=== PATIENT | female | born 1965 | race Caucasian/White ===

== ENCOUNTER 2023-07-01 10:35 | Outpatient (AMB) | payer MEDICAID, SELFPAY ==
--- NOTE | 2023-07-01 10:43 | A.OFFVIS_ITS ---
Intake Vital Signs 07/01/23 10:52 Height 5 ft 3 in Weight 217 lb BMI 38.4 BP 132/80 Blood Pressure Location Lt brachial Position Sitting Respiration 16 Pulse 94 Pulse Source Pulse Oximeter Pulse Oximetry (%) 97 Oxygen Delivery Method Room Air Intake Visit Reasons: Postaminectory syndrome, not elsewhere classified Intake Note: patient comes in for initial visit was referred by [facility]. Allergies No Known Allergies Allergy (Verified 07/01/23 10:47) HPI Postaminectory syndrome, not elsewhere classified HPI Details Maria Ines is very pleasant 58 years old female who presents in my office with complains on pain in the projection of the previously implanted spinal cord stimulator battery with sensation of the pain radiating from the battery site all the way down to the level of her knee on the lateral side of her thigh. She reported that she was given this procedure in the past by [facility] and after that she went to the surgeon with [facility] who implanted the device to her permanently. Unfortunately her insurance changed and her surgeon no longer accepts her insurance. She came to this office with request to remove the SCS. She reports that she cannot sleep normally because of her pain cannot do activities of daily living she can take care of herself but she cannot function normally currently she is unemployed. She in the past was working cover her pain points significant limitations on her working abilities. She reports that heat and cold applications might alleviate her pain minimally. She reports her pain in terms of tissue damage as pulsing throbbing pounding stabbing lancinating dull sore hurting aching heavy. She tried topical medications physical therapy and NSAIDs to help her pain those did not work. In the past she had 3 procedures on the lower lumbar spine she denies presence of the hardware. Her past medical history significant for headaches hypertension and arthritis. The surgical history is as above. She admits that she was smoker in the past currently is not smoking she denies drinking alcohol she denies using recreational drugs. [facility] Social History (Updated 07/01/23 @ 11:08 by Zoraida Acevedo) Alcohol intake: current Review of Systems Const Reports no additional complaints ENT Reports Normal hearing present Card Reports no additional complaints Resp Reports no additional complaints GI Reports no additional complaints Musc Reports as per HPI Neuro Reports as per HPI, Reports Normal hearing present, Denies Abnormal speech present, Denies confusion and Denies Sensory deficit (Neuro) Psych Denies confusion Physical Exam Vital Signs: Last Vital Signs Pulse 94 07/01/23 10:52 Resp 16 07/01/23 10:52 BP 132/80 07/01/23 10:52 Pulse Ox 97 07/01/23 10:52 Oxygen Delivery Method Room Air 07/01/23 10:52 BMI result Body Mass Index 38.4 Const General: no acute distress; No confusion Nutritional Appearance: obese morbidly obese Orientation/consciousness: patient oriented x3 and No confusion Eyes General: appearance normal, both eyes and all related structures Pupils: Equal, round and reactive pupils present EOM: EOMs intact bilaterally Neck Neck: Yes full ROM Chest Chest palpation & inspection: normal inspection of the chest Resp Effort & Inspection: normal respiratory effort, able to speak in complete sentences, normal respiratory pattern, no audible wheezes and no cough Cardio Jugular venous distension: no JVD GI Inspection: Yes normal to inspection Back/Spine/Pelvis Other: On this pack claire of the lumbar spine she has very well-healed scar in the projection of previously made lumbar surgeries as well as in the thoracic spine she has a scar in the projection of the thoracic spine. No signs of inflammation of any scars tissues no signs of infection no redness no swelling no pathological discharge. Neuro General: patient oriented x3, gait normal and No confusion Cranial nerves: Yes CN's II-XII intact bilaterally, Yes Equal, round and reactiv e pupils present, Yes Normal hearing present and Yes Ability to bilaterally elevate shoulders present Speech: No Abnormal speech present Gait exam (Neuro): Normal gait present Motor exam (neuro): 5/5 motor strength present throughout Sensory Exam: No Sensory deficit (Neuro) Extrem General: No pedal edema Psych Speech and movement: Normal speech and movement present Affect: normal affect Attitude: cooperative Thought process: Normal thought process present Thought content: Normal thought content present Insight: Good insight present (Psych) Judgement: Good judgement present (Psych) Assessment & Plan Assessment & Plan (1) Spinal cord stimulator dysfunction: Code(s): T85.192A - Other mechanical complication of implanted electronic neurostimulator of spinal cord electrode (lead), initial encounter (2) Postlaminectomy syndrome of lumbar region: Code(s): M96.1 - Postlaminectomy syndrome, not elsewhere classified (3) Chronic pain syndrome: Code(s): G89.4 - Chronic pain syndrome Plan I will refer this patient for neurosurgical procedure to Dr. Franklin. This is the only way I can help her pain. It looks like she does not complain on her postlaminectomy syndrome pain and rather have significant complains on SCS battery. She needs to remove the entire system including the paddle in the thoracic spine otherwise she will not be able to go for MRI. Orders: Referrals Neuro Spine Referral G89.4 - Chronic pain syndrome, M96.1 - Postlaminectomy syndrome, not elsewhere classified, T85.192A - Other mechanical complication of implanted electronic neurostimulator of spinal cord electrode (lead), initial encounter Coding Level of Care Code New Pt Level 3 (91645) Diagnoses Spinal cord stimulator dysfunction T85.192A Postlaminectomy syndrome of lumbar region M96.1 Chronic pain syndrome G89.4
[2023-07-01 10:52] VITALS: BP 132/80; PULSE 94; RESP 16; O2SAT 97; BMI 38.4
== END 2023-07-01 11:11 | disposition home or self-care (01) ==
PROVIDERS: PCP Physical Medicine & Rehabilitation; Visit Provider Anesthesiology
DX: T85.192A Other mechanical complication of implanted electronic neurostimulator of spinal cord electrode (lead), initial encounter (principal); M96.1 Postlaminectomy syndrome, not elsewhere classified; G89.4 Chronic pain syndrome
CPT/HCPCS: 99203

== ENCOUNTER → 2023-07-01 10:35 | Outpatient (BNVA) | payer OTHER, SELFPAY | PROVIDERS: PCP Physical Medicine & Rehabilitation; Visit Provider Anesthesiology ==

== ENCOUNTER 2023-08-20 13:57 | Outpatient (AMB) | payer OTHER, SELFPAY ==
--- NOTE | 2023-08-20 14:04 | HO.SPINEOV ---
Intake Intake Visit Reasons: chronic pain Intake Note: Ms. Posada is here today to discuss removal of SCS. Vision Teacher Required: No Allergies No Known Allergies Allergy (Verified 07/01/23 10:47) Assessment & Plan Assessment & Plan (1) Chronic pain syndrome: Code(s): G89.4 - Chronic pain syndrome Plan Dear Dr Demarco, Thank you for referring Mrs Posada to our office today. She is a 58-year-old female who has had 3 previous back surgeries by Dr. Powell, who underwent a spinal cord stimulator placement at [facility] 2 years ago. Unfortunately the placement of the stimulator left her with significant amount of pain around her left buttock where the implantable neurostimulator is located. She reports that it feels like a bruise. It has never gone away gotten better. When the device is turned on will give her like trickle sensations down her legs and will generally make the hole sensation of the pain in her back and the site of the battery even worse. She would like to have it removed. She does have ongoing back pain and left leg radicular pain and a spondylolisthesis at L4-5. PMH: Borderline diabetes, just started on medicine, 3 previous back surgeries, depression, GERD, seasonal allergies Social hx: She vapes Medications: Aripiprazole, duloxetine, gabapentin, loratadine, lorazepam, metformin, naproxen, nortriptyline, pantoprazole, Ambien Allergies: None Physical exam: Awake alert oriented, no acute distress, gait, strength is normal. I was able the palpate the neurostimulator on the left side of her buttocks region. It was tender to palpation. She has a midline scar in her lumbar and her thoracic region. Imaging review: I did x-rays today in the office which show an implantable device in the left side soft tissues extending into the thoracic region subcutaneously and the wires tunneled in the midthoracic region to the epidural paddles. Impression: 58-year-old female presents with history of chronic low back pain, left leg pain, 3 previous surgeries on her lumbar region done by Dr Powell many years ago, who underwent a spinal cord stimulator placement by at [facility] 2 years ago. The device has been nothing but an annoyance an inconvenience for her. It actually gives her worsening pain when it is turned on. She has a constant feeling of bruising over the pulse generator site on her left buttock. She would like it removed. Dr. Franklin and I discussed the procedure with her. We have tentatively booked her for September 26. She understands that the device will be removed, but there are rare circumstances were we cannot get the whole set of wires and paddles out if they are too tethered or scarred onto the dura. She wishes to proceed with the surgery, all pertinent risks and benefits were discussed. Thank you for allowing us to care for your patient. The total time spent with this visit with this patient was 45 minutes reviewing history, physical exam, thoracic and lumbar x-ray imaging review, and implementation of treatment plan or further diagnostic testing Luisito Franklin MD,PhD [facility] Orders: Orders XR lumbar spine 4V min Today G89.4 - Chronic pain syndrome XR thoracic spine 2V Today G89.4 - Chronic pain syndrome Coding Level of Care Code New Pt Level 4 (60996) Diagnoses Chronic pain syndrome G89.4
== END 2023-08-20 15:07 | disposition home or self-care (01) ==
PROVIDERS: PCP Physical Medicine & Rehabilitation; Referring Provider Anesthesiology; Visit Provider Physician Assistant
DX: G89.4 Chronic pain syndrome (principal)
CPT/HCPCS: 99204

== ENCOUNTER 2023-08-20 13:57 | Outpatient (REF) | payer OTHER, SELFPAY ==
--- NOTE | ~2023-08-20 | XR_ITS ---
EXAMINATION: XR LUMBOSACRAL SPINE WITH OBLIQUES CLINICAL INFORMATION: Chronic pain syndrome. COMPARISON: None available. TECHNIQUE: Frontal and lateral views of the lumbar spine. FINDINGS: Examination demonstrates mild to moderate disc and facet degenerative change at L4-S1, with grade 1 anterolisthesis of L4 on L5. Mild thoracolumbar levocurvature. Vertebral body heights appear maintained. No lytic or sclerotic bony lesion is seen. The paraspinal soft tissues appear unremarkable. Electronic presumed pulse generator device projects over the left gluteal soft tissues. Its leads are partially imaged. Status post cholecystectomy. XR/XR lumbar spine 4V min IMPRESSION: Degenerative change.
--- NOTE | ~2023-08-20 | XR_ITS ---
EXAMINATION: XR THORACOLUMBAR SPINE CLINICAL INFORMATION: Chronic pain syndrome. COMPARISON: None available. TECHNIQUE: Frontal and lateral views of the thoracic spine. FINDINGS: The vertebral alignment is normal. Mild to moderate mid to lower thoracic disc degenerative change, most notable at T5-T9. No fracture or subluxation appreciated. 62 }} the partially imaged. The tips of the leads project over the posterior spinal canal at T6-T7. The surrounding prevertebral soft tissues otherwise appear unremarkable. Status post cholecystectomy. XR/XR thoracic spine 2V IMPRESSION: No acute finding.
== END 2023-08-20 13:58 | disposition home or self-care (01) ==
LOC: HO.HOSX 13:57
PROVIDERS: PCP Physical Medicine & Rehabilitation; Referring Provider Anesthesiology; Visit Provider Physician Assistant
DX: G89.4 Chronic pain syndrome (principal)
CPT/HCPCS: 72070; 72110

== ENCOUNTER 2023-09-26 05:53 | Day surgery (SDC) | payer MEDICAID, SELFPAY ==
[2023-09-24 10:25] VITALS: BMI 35.4
--- NOTE | 2023-09-25 12:41 | HO.ANESPROP2 ---
Documented by User: Leonora Houston NP 09/25/23 12:42 HPI - Anesthesia Eval Consult details Narrative: 58yo F for Left Spinal Cord Stimulation REMOVAL PMFSH Active Problems Active Problems: All Active Problems (Updated 09/24/23 @ 10:29 by Kaylyn Allen RN) Chronic pain syndrome (Acute) Postlaminectomy syndrome of lumbar region (Acute) Spinal cord stimulator dysfunction (Acute) Past Medical History Medical History (Updated 09/24/23 @ 10:29 by Kaylyn Allen, NATASHA) Anxiety Vapes nicotine containing substance Depression Seasonal allergies GERD (gastroesophageal reflux disease) Diabetes Surgical History Surgical History (Updated 09/24/23 @ 10:25 by Kaylyn Allen, NATASHA) Hx of colonoscopy Hx of cholecystectomy History of back surgery Social History (Updated 07/01/23 @ 11:08 by Zoraida Acevedo) Are you a primary chiropractic care to a significant other at home: No Do you presently have visiting nurse or other home services: No Alcohol intake: current Alcohol intake frequency: does not drink Patient Tobacco Use Status: Former Tobacco user Quit Date: 2015 Tobacco use type: Smokeless Tobacco Meds Allergies Allergy/AdvReac Type Severity Reaction Status Date / Time No Known Allergies Allergy Verified 09/24/23 10:25 Home Medications Medication Instructions Recorded Confirmed Last Taken Type aripiprazole 2 mg tablet 2 mg PO BEDTIME 07/01/23 09/24/23 Unknown History duloxetine 60 mg capsule,delayed 60 mg PO BEDTIME 07/01/23 09/24/23 Unknown History release gabapentin 300 mg capsule 300 mg PO TID 07/01/23 09/24/23 Unknown History loratadine 10 mg tablet 10 mg PO BEDTIME 07/01/23 09/24/23 Unknown History lorazepam 2 mg tablet 1 mg PO TID 07/01/23 09/24/23 09/26/23 05:30 History metformin 500 mg tablet,extended 1,000 mg PO BID 07/01/23 09/24/23 Unknown History release 24 hr naproxen 500 mg tablet 500 mg PO BID 07/01/23 09/24/23 09/18/23 08:00 History nortriptyline 10 mg capsule 10 mg PO BEDTIME 07/01/23 09/24/23 Unknown History pantoprazole 40 mg tablet,delayed 40 mg PO DAILY 07/01/23 09/24/23 Unknown History release zolpidem 10 mg tablet 10 mg PO BEDTIME 07/01/23 09/24/23 Unknown History Exam Exam Date and Time: September 25, 2023 124 Height,Weight and Vital Signs: Height 5 ft 3 in Weight 90.718 kg Assessment and Plan Assessment Anesthesia Assessment: Chart Reviewed Documented by User: Bimal Waite MD 10/03/23 16:48 [facility] Past Medical History Medical History (Updated 09/24/23 @ 10:29 by Kaylyn Allen RN) Anxiety Vapes nicotine containing substance Depression Seasonal allergies GERD (gastroesophageal reflux disease) Diabetes Family History Family history of problems with anesthesia: No Surgical History Surgical History (Updated 09/24/23 @ 10:25 by Kaylyn Allen RN) Hx of colonoscopy Hx of cholecystectomy History of back surgery History of Problems with Anesthesia: No Social History (Updated 07/01/23 @ 11:08 by Zoraida Acevedo) Are you a primary chiropractic care to a significant other at home: No Do you presently have visiting nurse or other home services: No Alcohol intake: current Alcohol intake frequency: does not drink Patient Tobacco Use Status: Former Tobacco user Quit Date: 2015 Tobacco use type: Smokeless Tobacco Meds Allergies Allergy/AdvReac Type Severity Reaction Status Date / Time No Known Allergies Allergy Verified 09/24/23 10:25 Home Medications Medication Instructions Recorded Confirmed Last Taken Type aripiprazole 2 mg tablet 2 mg PO BEDTIME 07/01/23 09/24/23 Unknown History duloxetine 60 mg capsule,delayed 60 mg PO BEDTIME 07/01/23 09/24/23 Unknown History release gabapentin 300 mg capsule 300 mg PO TID 07/01/23 09/24/23 Unknown History loratadine 10 mg tablet 10 mg PO BEDTIME 07/01/23 09/24/23 Unknown History lorazepam 2 mg tablet 1 mg PO TID 07/01/23 09/24/23 09/26/23 05:30 History metformin 500 mg tablet,extended 1,000 mg PO BID 07/01/23 09/24/23 Unknown History release 24 hr naproxen 500 mg tablet 500 mg PO BID 07/01/23 09/24/23 09/18/23 08:00 History nortriptyline 10 mg capsule 10 mg PO BEDTIME 07/01/23 09/24/23 Unknown History pantoprazole 40 mg tablet,delayed 40 mg PO DAILY 07/01/23 09/24/23 Unknown History release zolpidem 10 mg tablet 10 mg PO BEDTIME 07/01/23 09/24/23 Unknown History Exam Airway Mallampati Class: IV Loose/Missing/Broken Teeth: Yes (right chipped) Assessment and Plan Assessment Anesthesia Assessment: Anesthesia Plan Discussed Final Anesthetic Review Family History of Problems with Anesthesia: No History of Problems with Anesthesia: No NPO: Yes ASA Class: III Final Preanesthetic Review: Meds/Allgs Chart Reviewed, Consent Obtained/Reviewed and Anes Risks/Benef Reviewed Patient Risk: Intermediate Procedure Risk: Intermediate Anesthetic Plan Anesthetic Plan: GA and Agree w/ Assess. and Plan Disposition: Standard PACU
[2023-09-26] VITALS (11 sets, daily range): BP systolic 124–157; BP diastolic 72–88; PULSE 84–90; RESP 10–19; TEMP 36.1–36.6; O2SAT 94–98; BMI 39.1
[2023-09-26] MEDS: Gabapentin 300 MG CAPSULE PO (06:30)
[2023-09-26] MEDS: methocarbamoL 750 MG TABLET PO (06:30)
[2023-09-26 06:36] LABS: Glucose, Whole Blood 136 mg/dL (60-115)
[2023-09-26] MEDS: Lactated Ringers 1,000 ML 100 ML IVCONT (06:38)
--- NOTE | 2023-09-26 06:59 | MHC.SHP ---
Pre-Procedural Eval Section A Date of Service: 09/26/23 Section B Chief Complaint: Chronic pain syndrome Allergies: Allergies Allergy/AdvReac Type Severity Reaction Status Date / Time No Known Allergies Allergy Verified 09/24/23 10:25 Review of Systems Sugical H&P ROS: Negative: Constitution, Cardiovascular, Respiratory, Neurological, Psychiatric, Hem-Onc, Allergic/Immunologic, Gastrointestinal, Genitourinary, Musculoskeletal, Integumentary, Endocrine and Eyes/Ears/Nose/Throat Exam Surgical H&P Exam: Not Evaluated: HEENT, Not Evaluated: Heart, Not Evaluated: Lungs, Not Evaluated: Extremities, Not Evaluated: Abdomen, Not Evaluated: Skin and Not Evaluated: Neurological Plan Diagnosis/Plan: Unchanged I have reviewed the history and physical and performed a pertinent physical examination on my patient. No changes have occurred unless specified. Her plan remains the same, spinal cord stimulator removal. Time Spent With Patient Time: Total time managing care of this patient today __10__ minutes.
--- NOTE | 2023-09-26 08:57 | PM.DS ---
DS: Providers Provider Date of Service: 09/26/23 Primary care physician: Oniel Escoto MD DS: Summary Time Attestation Discharge coordination time: Less than 30 minutes Quality: Safe Use of Opioids Does Pt have an Active Cancer Diagnosis on the Problem List?: No Quality: Stroke Does the patient have a stroke diagnosis?: No Physical Exam Vital Signs: Vital Signs: Last Vital Signs Temp 97 F 09/26/23 06:18 Pulse 88 09/26/23 06:18 Resp 19 09/26/23 06:18 BP 157/80 H 09/26/23 06:18 Pulse Ox 97 09/26/23 06:18 O2 Del Method Room Air 09/26/23 06:18 BMI result Body Mass Index 39.1 DS: Data Data Completed and Pending Labs on day of discharge: Laboratory Results - last 24 hr 09/26/23 06:29 POC Glucose 136 H Discharge Plan Discharge Patient Disposition: Home, Self-Care Referrals: Oniel Escoto MD [Primary Care Provider] - 1 Week Discharge Medications: New oxycodone 5 mg tablet 5 mg PO Q8H PRN (Reason: severe pain (scale score 7-10)) Qty: 21 0RF Rx Instructions: Partial Fill upon patient request. Continued naproxen 500 mg tablet 500 mg PO BID zolpidem 10 mg tablet 10 mg PO BEDTIME pantoprazole 40 mg tablet,delayed release (DR/EC) 40 mg PO DAILY aripiprazole 2 mg tablet 2 mg PO BEDTIME duloxetine 60 mg capsule,delayed release(DR/EC) 60 mg PO BEDTIME nortriptyline 10 mg capsule 10 mg PO BEDTIME gabapentin 300 mg capsule 300 mg PO TID lorazepam 2 mg tablet 1 mg PO TID loratadine 10 mg tablet 10 mg PO BEDTIME metformin 500 mg tablet extended release 24 hr 1,000 mg PO BID Discharge Orders: Discharge Order (Routine); Ordered 09/26/23 Ordered By: Brandin Martins Diet: Advance to usual diet Activity on Discharge: As tolerated Activity Restrictions/Additional Instructions: After your spinal surgery we ask you to observe the following restrictions/guidelines: Activity: It is normal to feel some discomfort as you increase your activity, but that will improve with time. We ask you avoid heavy lifting or acitivities that cause pain. As a general rule, 8lbs is a safe limit for lifting right after surgery. Walk as much as you feel comfortable but not to exhaustion. You will feel extra tired the first few days after surgery. Stay well hydrated. It is OK to walk up and down stairs You may return to driving when you are off narcotics (such as vicodin, oxycodone, dilaudid, etc), and you are back to normal functional capacity. If you have any concerns please check with office before driving. Return to work is specific to each patient and each surgery, so please speak with your doctor/PA at first follow up. Please bring paperwork such as FMLA at that time if you need it filled out. Medications: We will give you a short supply of narcotics after surgery (usually one weeks worth). If you need more please call the office but do not use more than prescribed. You will need to give our office 48 hours notice if you need narcotics refilled and we do not fill narcotics on weekends or evenings. If you are on a narcotic, it is a good idea to take a stool softener such as colace or senna to avoid constipation If you take blood thinner such as aspirin, Plavix, Coumadin, Effient, Eliquis etc for conditions such as Afib, DVT, Pulmonary embolus, coronary disease, stents etc please speak with your surgeon about specific details as to when you can resume these medications. You can resume NSAIDs on post op day 1 (eg: Motrin, Naproxen, etc). Follow up: Please call the office, , after surgery to arrange a 3 week follow up for wound check. Wound Care: You may remove your dressing on the first day after surgery. You may leave open to air. Please do not remove the steri strips underneath. they will fall off on their own in one week. IT IS NORMAL FOR THE WOUND TO OOZE OR BE BLOODY FOR A FEW DAYS AFTER SURGERY. IF THIS HAPPENS JUST PLACE NEW DRESSING OVER IT TO AVOID STAINING CLOTHES. You may shower on post op day # 1 We ask that you do not let the water soak the wound. If it does get wet, just towel dry lightly. Please do not scrub your incision or place any type of chemical/ointment on the wound. No tub baths, pools or jacuzzis for one month. If you have any leaking or redness from your wound, or fevers, please call the office.
--- NOTE | 2023-09-26 10:15 | W.PM.OPN ---
Operative Note Operative Note Date of Service: 09/26/23 Narrative: Preop diagnosis: spinal cord stimulator malfunction Postop diagnosis: same Procedure: removal spinal cord stimulator and generator Surgeon: Dima Franklin MD Assist: TRACE Reynolds Description of procedure: This 58-year-old female has a spinal cord stimulator for chronic pain, which is no longer functional. She wants to have it removed. The procedure complications were explained, including the possibility that the spinal cord stimulator will not come out due to scar tissue. She was brought to the operating room and endotracheally intubated. She was turned prone on the Homero frame. Prepping and draping was done followed by time out. the physician doctor assistant expose the generator. For that he made an incision in the left buttock area. He exposed the battery and removed it from its pocket. In the meantime I worked at the thoracic spine. A midthoracic incision was made. The leads were identified. In the leads in the battery were cut and the leads wereretrieved towards the thoracic incision. The physician doctor assistant closed the supra illiac incision. I follow the leads until they went under the lamina. I tried to remove the 2 leads unsuccessfully and therefore cut time at the entrance of the lamina. Hemostasis was done. The thoracic incision was closed in 2 layers. Steri-Strips were used to approximate incision. An Oppsite with tegaderm was used to cover the incision. All sponge and needle counts were correct. Patient was extubated and transported in a stable condition to recovery room. Anesthesia: general Estimated blood loss: minimal Deposition: Discharge home
== END 2023-09-26 11:59 | disposition home or self-care (01) ==
PROVIDERS: PCP Family Medicine; Visit Provider Neurological Surgery
PROC: (CPT 63661; principal; 2023-09-26 07:30)
DX: T85.840A Pain due to nervous system prosthetic devices, implants and grafts, initial encounter (principal); Y75.2 Prosthetic and other implants, materials and neurological devices associated with adverse incidents; G89.4 Chronic pain syndrome; M43.16 Spondylolisthesis, lumbar region; M54.50 Low back pain, unspecified; Z98.890 Other specified postprocedural states; R73.03 Prediabetes; K21.9 Gastro-esophageal reflux disease without esophagitis; F32.A Depression, unspecified; Z79.84 Long term (current) use of oral hypoglycemic drugs; Z79.1 Long term (current) use of non-steroidal anti-inflammatories (NSAID); Z79.899 Other long term (current) drug therapy; F17.290 Nicotine dependence, other tobacco product, uncomplicated
CPT/HCPCS: 63661; 63688; 82947; J0131; J0690; J1100; J1170; J2250; J2405; J2704; J3010

== ENCOUNTER → 2023-09-26 05:53 | Outpatient (BNV) | payer MEDICAID, SELFPAY | PROVIDERS: PCP Family Medicine; Visit Provider Physician Assistant | DX: T85.193A Other mechanical complication of implanted electronic neurostimulator, generator, initial encounter (principal) | CPT/HCPCS: 63662; 63688; 99499 ==

== ENCOUNTER 2023-10-18 10:13 | Outpatient (AMB) | payer MEDICAID, SELFPAY ==
--- NOTE | 2023-10-18 10:31 | A.SPINEOV_ITS ---
Intake Intake Visit Reasons: 1st post op Intake Note: Mrs. Posada is here today for her 1st post-op visit. Commercial Hvac Technician Required: No Allergies No Known Allergies Allergy (Verified 09/24/23 10:25) Assessment & Plan Assessment & Plan (1) Chronic pain syndrome: Code(s): G89.4 - Chronic pain syndrome Plan Procedure: removal spinal cord stimulator and generator Maria Ines comes in today for her 1st postoperative visit. She has had an uncomplicated healing course status post removal of her spinal cord stimulator. She did report neck pain after the procedure, but did state during this visit today that she had the neck pain since before her stimulator was removed and feels as though it may be related to a newer/acute injury. Overall she reports no pain incision sites and states that she feels no different aside from her stimulator being removed. No neurological deficits. Patient is able to ambulate well, rises from a seated position without difficulty. Incision sites are closed, well healing, with no signs of drainage. We will not and follow-up with the removal of her spinal cord stimulator as this was a fairly uncomplicated procedure. She will be making a follow-up visit with us to re-evaluate her newer onset neck pain. Brandin Franklin MD,PhD [facility] Coding Level of Care Code Global (64741) Diagnoses Chronic pain syndrome G89.4
== END 2023-10-18 10:45 | disposition home or self-care (01) ==
PROVIDERS: PCP Family Medicine; Visit Provider Physician Assistant
DX: G89.4 Chronic pain syndrome (principal)
CPT/HCPCS: 99024

== ENCOUNTER → 2023-10-18 10:13 | Outpatient (BNVA) | payer MEDICAID, SELFPAY | PROVIDERS: PCP Family Medicine; Visit Provider Physician Assistant | DX: Z48.811 Encounter for surgical aftercare following surgery on the nervous system (principal); G89.4 Chronic pain syndrome | CPT/HCPCS: 99212 ==

== ENCOUNTER 2023-11-15 13:10 | Outpatient (REF) | payer MEDICAID, SELFPAY ==
--- NOTE | ~2023-11-15 | XR_ITS ---
EXAMINATION: XR CERVICAL SPINE CLINICAL INFORMATION: Radiculopathy cervical region. COMPARISON: Thoracic spine of August 20, 2023 TECHNIQUE: 5 views of the cervical spine inclusive of flexion and extension views. FINDINGS: Status post ACDF with anterior plate with screws transfixing C5-C6. Hardware appears intact. Multiple rounded radiodensities obscure visualization of C1-C2, possibly related to jewelry and correlation with clinical exam is recommended for confirmation. Visualization of C6 and C7 is limited due to overlying soft tissues. Mild anterolisthesis of C3 on C4 with flexion and extension. XR/XR cervical spine 4V IMPRESSION: Status post ACDF at C5-C6. Hardware appears intact.
== END 2023-11-15 13:11 | disposition home or self-care (01) ==
LOC: HO.HOSX 13:10
PROVIDERS: PCP Family Medicine; Visit Provider Physician Assistant
DX: M54.12 Radiculopathy, cervical region (principal)
CPT/HCPCS: 72050; 99212

== ENCOUNTER 2023-11-15 13:10 | Outpatient (AMB) | payer MEDICAID, SELFPAY ==
--- NOTE | 2023-11-15 14:00 | HO.SPINEOV ---
Intake Intake Visit Reasons: neck and shoulder pain Allergies No Known Allergies Allergy (Verified 09/24/23 10:25) Assessment & Plan Assessment & Plan (1) Cervical radiculopathy: Code(s): M54.12 - Radiculopathy, cervical region Plan HPI: Maria Ines is a pleasant 58-year-old female who is s/p spinal cord stimulator removal. She comes in today in follow-up as an established patient for a new complaint. She reports that she has had right-sided neck and shoulder pain for the last 1.5 months. She reports that her neck pain began without inciting incident, and came on suddenly upon awakening one morning. She states she may have had the neck pain for much longer but did not realize how significant it was until after some of her back pain was relieved from her recent spinal cord stimulator removal. She does have a history of a previous ACDF performed in 2010 at [facility], but she is unsure which levels were done. She states that since her pain onset 6 weeks ago she is attempted to utilize [id number] remedies such as naproxen, Tylenol, Biofreeze, heating pads, and cold packs. She is also attempted an at-home stretching/exercise regimen but states it only exacerbated her symptoms. PE: On exam Maria Ines has 5/5 strength in her upper and lower extremities. No significant sensational deficits are identified. Reflexes are 3+ brisk in her upper & lower extremities. She is able to ambulate well and rises from a seated position without difficulty. (+) right-sided Salinas's. (-) clonus. IMAGING: X-ray imaging shows stable positioning of previous C5-6 ACDF. PLAN: Maria Ines is a pleasant 58-year-old female who comes in today with a chief complaint of 1.5 months of cervical neck pain with radicular symptoms into her right shoulder. Please review her previous office notes for a full patient history. Her history and physical exam are concerning for spinal cord impingement potentially affecting the exiting nerve roots in the right side. I would like to order an MRI of the cervical spine, however when her spinal cord stimulator was removed a portion of the wire leads needed to be left in the upper portion of her back as they could not be removed. The patient is unsure as to what type of spinal cord stimulator she had, and is unsure if she is able to get an MRI. I asked the patient to return home and to look for the information on her stimulator over the weekend, and to call the office early next week so we can schedule her for an MRI if she is eligible. If not we may need to pursue a cervical CT myelogram. Total amount of time spent in this visit was 35 minutes in discussion of symptoms, X-ray imaging results and subsequent plan of care Brandin Franklin MD,PhD [facility] Orders: Orders XR cervical spine 4V Today M54.12 - Radiculopathy, cervical region Coding Level of Care Code Est Pt Level 4 (45403) Diagnoses Cervical radiculopathy M54.12
== END 2023-11-15 14:50 | disposition home or self-care (01) ==
PROVIDERS: PCP Family Medicine; Visit Provider Physician Assistant
DX: M54.12 Radiculopathy, cervical region (principal)
CPT/HCPCS: 99214

== ENCOUNTER 2023-12-24 09:19 | Day surgery (SDC) | payer MEDICAID, SELFPAY ==
[2023-12-24] VITALS (7 sets, daily range): BP systolic 130–170; BP diastolic 60–84; PULSE 68–83; RESP 16–18; TEMP 36.6–36.9; O2SAT 94–96; BMI 39.3
--- NOTE | ~2023-12-24 | CT_ITS ---
CT CERVICAL SPINE WITHOUT CONTRAST CLINICAL INFORMATION: POST MYELOGRAM COMPARISON: Cervical spine radiographs 11/15/2023. TECHNIQUE: A multidetector CT acquisition of the cervical spine is obtained following the intrathecal menstruation myelographic contrast agent as reported separately. This CT examination was performed using dose optimization techniques as appropriate, variously including the following: *Automated exposure control *Adjustment of mA and/or kV according to patient size (this includes techniques or standardized protocols for targeted exams where dose is matched to indication/reason for exam; i.e. extremities or head) *Use of iterative reconstruction technique FINDINGS: There is excellent intrathecal contrast opacification. There is no myelographic block. There are postoperative changes following ACDF at C5-C6. Surgical hardware is intact and there is no evidence of hardware loosening. There is slight anterior subluxation of C3 on C4. The vertebral body heights are maintained. There is moderate to severe disc volume loss at C6-C7. Anterior endplate osteophytes at C6-C7. Nonsurgical disc volumes are otherwise preserved. The craniocervical junction is unremarkable. Retention cyst within the floor the left maxillary sinus. C2-C3: Posterior disc contour is normal. No central canal stenosis and no foraminal stenosis. C3-C4: Slight anterior subluxation. There is advanced right-sided facet arthropathy that along with uncovertebral joint spurring results in moderate right-sided foraminal stenosis. Posterior disc contour is normal. No central canal and no left foraminal stenosis. C4-C5: Posterior disc contour is normal. There is bilateral facet arthropathy. There is no central canal stenosis and there is no foraminal stenosis. C5-C6: ACDF changes. There is no central canal stenosis. Bilateral facet arthropathy. No significant foraminal stenosis. C6-C7: There is a diffuse disc osteophyte complex that minimally indents the ventral thecal sac without resulting in central canal stenosis. Uncovertebral joint spurring and facet arthropathy result in mild bilateral foraminal encroachment. C7-T1: Disc contour is normal and there is no central canal stenosis nor foraminal stenosis. CT/CT cervical spine wo IV con IMPRESSION: - There are postoperative changes following ACDF at C5-C6. Surgical hardware is intact and there is no evidence of hardware loosening. Excellent intrathecal contrast opacification with no myelographic block and no significant central canal stenosis within the cervical spine. - At C3-C4, there is advanced right-sided facet arthropathy that along with uncovertebral joint spurring results in moderate right-sided foraminal stenosis. Slight degenerative anterior subluxation of C3 on C4. - At C6-C7, multifactorial degenerative changes result in mild bilateral foraminal stenosis.
--- NOTE | ~2023-12-24 | FL_ITS ---
Fluoroscopic cervical myelogram Indication: Radiculopathy Risks and benefits and possible complications were discussed with the patient and the consent form was signed. Patient was placed prone on the fluoroscopy table. The back was prepped and draped in routine sterile fashion. Betadine was used as a skin antiseptic. Utilizing fluoroscopic guidance, the L4-5 level was accessed with a 22 gague quinkie spinal needle and clear CSF fluid was obtained. A total of 10 mL of Isovue-M 300 was then injected through the spinal needle. The fluoroscopy table was then tilted to allow the intrathecal contrast to flow to the cervical spine. The needle was removed without immediate complications. Total fluoroscopy time: 2 minutes 45 seconds FL/FL myelogram spine cervical Impression: Successful fluoroscopic cervical myelogram This procedure was performed by Shmuel Richardson PA-C and supervised by Dr. Bermudez.
[2023-12-24 10:25] LABS: Glucose, Whole Blood 113 mg/dL (60-115)
[2023-12-24 11:01] LABS: MANUAL DIFF FLAG NO
[2023-12-24 11:06] LABS: Basophils Absolute Auto 0.1 X10*3/uL (0.0-0.2); Eosinophils Absolute Auto 0.1 X10*3/uL (0.0-0.4); Eosinophils Percent Auto 2.4 % (0-4); Hemoglobin 11.4 g/dl (12.0-16.0); Imm Gran Abs Auto 0.04 X10*3/uL (0.00-0.03); Imm Gran Pct Auto 0.8 % (0.0-0.4); Lymphocytes Absolute Auto 1.7 X10*3/uL (1.2-4.9); Lymphocytes Percent Auto 32.7 % (20-40); Mean Corpuscular HGB Conc 32.6 g/dl (31.0-35.0); Mean Corpuscular Hemoglobin 28.1 pg (27.0-33.0); Mean Corpuscular Volume 86.4 fL (80.0-98.0); Mean Platelet Volume 9.3 fL (9.4-12.3); Monocytes Absolute Auto 0.5 X10*3/uL (0.1-1.2); Neutrophils Absolute Auto 2.7 x10*3/uL (2.0-8.3); Neutrophils Percent Auto 53.1 % (45-73); Platelet Count 284 X10*3/uL (160-400); Red Blood Count 4.05 X10*6/uL (4.20-5.50); Red Cell Distribution Width 14.8 % (11.0-16.0); White Blood Count 5.1 X10*3/uL (4.8-10.8)
[2023-12-24 11:13] LABS: INTERNATIONAL NORM RATIO 0.9 (0.9-1.1); Prothrombin Time 10.6 SEC (11.1-13.3)
[2023-12-24 11:15] LABS: Partial Thromboplastin Time 31.7 SEC (26.0-36.8)
[2023-12-24] MEDS: Acetaminophen 325 MG TABLET 650 MG PO (12:39)
== END 2023-12-24 13:09 | disposition home or self-care (01) ==
PROVIDERS: Physician Assistant Surgical; Radiology Vascular & Interventional Radiology; PCP Family Medicine; Visit Provider Physician Assistant
DX: G95.9 Disease of spinal cord, unspecified (principal); M54.12 Radiculopathy, cervical region; Z98.890 Other specified postprocedural states
CPT/HCPCS: 36415; 62302; 72125; 82947; 85025; 85610; 85730; Q9967

== ENCOUNTER → 2023-12-24 09:51 | Outpatient (BNV) | payer MEDICAID, SELFPAY | PROVIDERS: PCP Family Medicine; Visit Provider Student in an Organized Health Care Education/Training Program | DX: M54.12 Radiculopathy, cervical region (principal) | CPT/HCPCS: 62302 ==

== ENCOUNTER 2024-01-08 13:21 | Outpatient (AMB) | payer MEDICAID, SELFPAY ==
--- NOTE | 2024-01-08 13:48 | HO.SPINEOV ---
Intake Intake Visit Reasons: review CT myelogram Intake Note: Ms. Posada is here today for a review of CT Myelogram. 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 We reviewed her imaging, which is generally unremarkable from a neurosurgical standpoint. Her previous fusion with anterior plating at C5-6 appears stable, and the rest of her cervical spine is in proper alignment with seemingly good CSF flow. There is not appear to be any significant central cord impingement or osseous abnormalities. However, she continues to complain of posterior neck pain which shoots into her right shoulder. She denies any radiation down her arms, and denies any hand or finger involvement. She does report a previous history of a right-sided rotator cuff repair which may be a confounding factor as far as we are concerned at this time she has not a candidate for any acute neurosurgical interventions. She asked several questions regarding pain control and I recommended that she follow up with our colleagues in physiatry/pain management. I also discussed the possibility of trigger point injections for trapezius, as she had questions regarding this. Total amount of time spent in this visit was 20 minutes in discussion of symptoms, CT myelogram imaging results and subsequent plan of care Brandin Franklin MD,PhD [facility] Orders: Referrals Pain Management Referral G95.9 - Disease of spinal cord, unspecified Coding Level of Care Code Est Pt Level 3 (57976) Diagnoses Cervical radiculopathy M54.12
== END 2024-01-08 14:45 | disposition home or self-care (01) ==
PROVIDERS: PCP Family Medicine; Visit Provider Physician Assistant
DX: M54.12 Radiculopathy, cervical region (principal)
CPT/HCPCS: 99213

== ENCOUNTER → 2024-01-08 13:21 | Outpatient (BNVA) | payer MEDICAID, SELFPAY | PROVIDERS: PCP Family Medicine; Visit Provider Physician Assistant | DX: M54.12 Radiculopathy, cervical region (principal) | CPT/HCPCS: 99212 ==